=== PATIENT | female | born 1990 | race Two or more races ===

== ENCOUNTER 2024-06-03 20:45 | Emergency (ER) | payer OTHER ==
[~2024-06-03] VITALS: Ht 167.6 cm; Wt 72.6 kg
[2024-06-03] MEDS ORDERED: PRENATAL + DHA1 EAC1 (21:16)
[2024-06-03] MEDS ORDERED: ONDANSETRON HCL 2 MG/ML VIAL ONE (21:59)
[2024-06-03] MEDS ORDERED: MEPERIDINE HCL/PF 50 MG/ML VIAL IM ONE (22:00)
[2024-06-03] MEDS ORDERED: ONDANSETRON HCL 2 MG/ML VIAL IM ONE (22:00)
[2024-06-03 22:18] LABS: HEMATOCRIT 32.3 % (36.0-45.00); HEMOGLOBIN 10.9 g/dL (12.0-15.00); MEAN CELL VOLUME 80.6 fL (80.00-100.00); MEAN CORPUSCULAR HEMOGLOBIN 27.1 pg (27.00-32.0); MEAN CORPUSCULAR HGB CONC 33.6 g/dl (32.0-36.0); PLATELET COUNT 256 K/uL (150-450); RED CELL DISTRIBUTION WIDTH 14.4 % (11.5-14.5)
[2024-06-03 23:08] LABS: URINE BILIRRUBIN Negative (NEGATIVE); URINE BLOOD Negative; URINE COLOR Yellow; URINE GLUCOSE Negative (NEGATIVE); URINE KETONE Negative (NEGATIVE); URINE LEUKOCYTE Trace; URINE NITRATE Negative; URINE PROTEIN Negative (NEGATIVE); URINE UROBILINOGEN 0.2 E.U./dl
[2024-06-03 23:12] LABS: URINE BACTERIA 774.7 uL (0.0-1933); URINE EPITHELIAL CELLS 4.1 uL (0.0-38.8); URINE WBC 14.5 uL (0.0-23.2)
[2024-06-03 23:33] LABS: URINE RBC 1.8 uL (0.0-20.8)
[2024-06-04] LABS: URINE APPEARANCE CLEAR
[2024-06-04] MEDS ORDERED: hydrOXYzine PAMOATE 50 MG CAPSULE PO STA (04:22)
[2024-06-04] MEDS ORDERED: hydrOXYzine PAMOATE 50 MG CAPSULE PO ONE (04:28)
== END 2024-06-04 08:12 ==
LOC: ER 20:47
PROVIDERS: General Practice
DX: Z34.90 Encounter for supervision of normal pregnancy, unspecified, unspecified trimester (principal); R10.2 Pelvic and perineal pain; Z88.0 Allergy status to penicillin; Z88.1 Allergy status to other antibiotic agents; Z88.5 Allergy status to narcotic agent; Z88.6 Allergy status to analgesic agent

== ENCOUNTER 2024-06-05 16:45 | Inpatient (IN) | payer OTHER ==
[~2024-06-05] VITALS: Ht 167.6 cm; Wt 72.6 kg
[~2024-06-05 16:45] MED LIST: PRENATAL + DHA1 EAC1
[2024-06-05 17:10] LABS: HEMATOCRIT 30.1 % (36.0-45.00); HEMOGLOBIN 10.1 g/dL (12.0-15.00); MEAN CELL VOLUME 80.6 fL (80.00-100.00); MEAN CORPUSCULAR HEMOGLOBIN 27.2 pg (27.00-32.0); MEAN CORPUSCULAR HGB CONC 33.7 g/dl (32.0-36.0); PLATELET COUNT 275 K/uL (150-450); RED BLOOD COUNT 3.73 M/uL (4.00-6.00); RED CELL DISTRIBUTION WIDTH 14.5 % (11.5-14.5); URINE APPEARANCE Clear; URINE BILIRRUBIN Negative (NEGATIVE); URINE BLOOD Negative; URINE COLOR Yellow; URINE GLUCOSE Negative (NEGATIVE); URINE KETONE Trace (NEGATIVE); URINE LEUKOCYTE Small; URINE NITRATE Negative; URINE PROTEIN Negative (NEGATIVE); URINE UROBILINOGEN 0.2 E.U./dl
[2024-06-05 17:13] LABS: URINE BACTERIA 910.9 uL (0.0-1933); URINE EPITHELIAL CELLS 9.7 uL (0.0-38.8); URINE RBC 2.5 uL (0.0-20.8); URINE WBC 29.8 uL (0.0-23.2)
[2024-06-05] MEDS ORDERED: RINGERS SOLUTION,LACTATED 1,000 ML IV SCH (17:15)
[2024-06-05 17:25] LABS: INR 0.97; PARTIAL THROMBOPLASTIN TIME 28.1 SECONDS (22.0-34.0); PROTHROMBIN TIME 10.6 SECONDS (9.0-11.5)
[2024-06-05 17:29] LABS: ALBUMIN 3.2 gm/dL (3.4-5.0); BILIRUBIN TOTAL 0.81 mg/dL (0.3-1.2); CALCIUM 9.5 mg/dL (8.5-10.1); CREATININE SERUM 0.46 mg/dL (0.55-1.02); GFR 154.58; GLOBULINA 3.6 G/DL (2.4-3.5); POTASSIUM 4.12 mEq/L (3.5-5.1); TOTAL PROTEIN 6.8 gm/dL (6.4-8.2)
[2024-06-05] MEDS ORDERED: MORPHINE SULFATE 4 MG/ML CARTRIDGE IV PRN (17:45)
[2024-06-05] MEDS ORDERED: MEPERIDINE HCL/PF 50 MG/ML VIAL IM ONE (21:00)
== END 2024-06-07 10:08 | disposition home or self-care (01) | DRG 833 ==
LOC: LDR 16:45
PROVIDERS: ADMIT Obstetrics & Gynecology Maternal & Fetal Medicine; ATTEND Obstetrics & Gynecology Maternal & Fetal Medicine
PROC: 4A1HXCZ Monitoring of Products of Conception, Cardiac Rate, External Approach (ICD-10-PCS; principal; 2024-06-05)
PROC: BY4CZZZ Ultrasonography of Second Trimester, Single Fetus (ICD-10-PCS; 2024-06-06)
PROC: BW3GZZZ Magnetic Resonance Imaging (MRI) of Pelvic Region (ICD-10-PCS; 2024-06-06)
DX: O26.892 Other specified pregnancy related conditions, second trimester (principal); R10.2 Pelvic and perineal pain; Z3A.15 15 weeks gestation of pregnancy; Z20.822 Contact with and (suspected) exposure to COVID-19
CPT/HCPCS: 72198

== ENCOUNTER 2024-07-12 20:43 | Outpatient (CLI) | payer OTHER ==
[2024-07-12 19:53] VITALS: BP 107/67
[2024-07-12 20:45] VITALS: BP 107/67
[2024-07-12] MEDS ORDERED: RINGERS SOLUTION,LACTATED 1,000 ML IV SCH (21:00)
[2024-07-12] MEDS ORDERED: PROMETHAZINE HCL 25 MG/ML AMPUL IV PRN (21:00)
[2024-07-12] MEDS ORDERED: MEPERIDINE HCL/PF 25 MG/ML VIAL IV PRN (21:00)
[2024-07-12] MEDS ORDERED: IRON PO (21:03)
[2024-07-12 23:39] VITALS: BP 99/64
[2024-07-13 04:10] VITALS: BP 101/67
[2024-07-13 07:05] VITALS: BP 100/62; O2SAT 99
[2024-07-13 10:40] VITALS: BP 100/62
== END 2024-07-13 10:40 | disposition home or self-care (01) ==
LOC: OBS/DEL 20:43
PROVIDERS: ATTEND Obstetrics & Gynecology
DX: O26.892 Other specified pregnancy related conditions, second trimester (principal); Z3A.20 20 weeks gestation of pregnancy; R10.2 Pelvic and perineal pain

== ENCOUNTER → 2024-11-05 | Outpatient (CLI) | payer OTHER ==
[~2024-11-05] MED LIST changes: +IRON PO
[2024-11-05 17:56] VITALS: BP 1175/75
== END | disposition home or self-care (01) ==
LOC: NST 17:34
PROVIDERS: ATTEND Obstetrics & Gynecology Maternal & Fetal Medicine
DX: Z34.83 Encounter for supervision of other normal pregnancy, third trimester (principal)